=== PATIENT | female | born 1950 | race Caucasian/White ===

== ENCOUNTER 2017-03-16 15:18 | Inpatient (IN) | payer OTHER, MEDICARE ==
--- NOTE | 2017-03-16 15:25 | EDPHY ---
H & P Time Seen by Provider: 03/16/17 15:22 HPI/ROS: CHIEF COMPLAINT: Fever since Friday HISTORY OF PRESENT ILLNESS: Patient discharged 09/19/2016 with diagnosis of right-sided pleural effusion and probable metastatic breast cancer. Currently on oral chemotherapy through [facility], currently on oral chemotherapy Ibrance, a 3 week course which would end this . Presents with fever since Friday. Temperature up to 100.6. Symptoms mild to moderate. Associated with increasing cough and some mild shortness of breath. She has a indwelling right-sided thoracentesis catheter which gets drained every 3 days and was last drained on Friday without any change in appearance. REVIEW OF SYSTEMS: Eye: no change in vision ENT: no sore throat Cardiac: Is some increasing right-sided axillary chest pain Pulmonary: HPI Abdomen: no vomiting, diarrhea, abdominal pain Musculoskeletal: no back pain Skin: no rash Neuro: no headache Constitutional: HPI : no urinary symptoms A comprehensive 10 point review of systems is otherwise negative aside from elements mentioned in the history of present illness. PAST MEDICAL HISTORY: Stage IV breast cancer being treated at [facility]. Social history: Here with spouse General Appearance: Alert and conversant, cooperative. Eyes: No scleral icterus. ENT, Mouth: Normal mucous membranes. Respiratory: Normal respiratory effort, breath sounds slightly decreased at the left base, lungs are clear to auscultation. Cardiovascular: Regular rate and rhythm. Gastrointestinal: Abdomen is soft and non tender. Neurological: Alert and oriented x3. Normally conversant. Face symmetric, normal movement and sensation in all extremities. Skin: Warm and dry, no rashes. Dressing over the right-sided thoracentesis strain, surrounding skin looks clean dry and intact. Musculoskeletal: No peripheral edema and no joint swelling. Psychiatric: Not agitated. Emergency Department course/MDM: 1642: Results discussed, will attempt to contact her oncologist Dr. Darryl Draper at [facility]. The name of her chemotherapy is Ibrance, 100mg daily. 1710: Discussed with Dr. Luque for [facility] at [facility]. Does not have SIRS criteria. Tachycardic but normal respiratory rate and normal temperature, white blood cell count normal. IV normal saline, Levaquin 750, admission to hospital. Plan to complete fluid drain right side of her chest and monitor for fever. Pretest probability for pulmonary embolism low, negative D-dimer. Smoking Status: Never smoked Constitutional: Initial Vital Signs Temperature (C) 37.1 C 03/16/17 15:25 Heart Rate 102 H 03/16/17 15:25 Respiratory Rate 16 03/16/17 15:25 Blood Pressure 168/97 H 03/16/17 15:25 O2 Sat (%) 92 03/16/17 15:25 O2 Delivery Mode Room Air Allergies/Adverse Reactions: codeine [Codeine] Allergy (Verified 09/18/16 09:53) Home Medications: Medication Instructions Recorded Acetaminophen [Tylenol 325mg (*)] 650 mg PO Q6 PRN 03/16/17 Herbals/Supplements -Info Only 1 ea PO DAILY 03/16/17 Letrozole [Femara 2.5 mg (*)] 2.5 mg PO DAILY@30 03/16/17 Palbociclib [Ibrance] 100 mg PO DAILY@10 03/16/17 Thyroid [[place] Thyroid 60 MG (*)] 60 mg PO DAILY 03/16/17 Medical Decision Making - Diagnostics Imaging Results: Imaging Impressions Chest X-Ray 03/16/17 15:32 Impression: 1. Small right apical pneumothorax. 2. Small right pleural effusion. 3. Right middle lobe pneumonitis. Findings and recommendations discussed with emergency department physician, Mario Talley MD at 1616 hours on March 16, 2017. Final report concurs with initial preliminary interpretation. Chest x-ray reviewed with radiologist shows right-sided pleural effusion with drain and small apical pneumothorax. Isuani at 1620. Differential Diagnosis: As differential for fever and chemotherapy considered including but not limited to viral syndrome, pneumonia, UTI, sepsis. Consult/Admit Bed Type: [place] [address] - Data Points Laboratory Results: Laboratory Results 03/16/17 15:36 03/16/17 15:36 03/16/17 03/16/17 03/16/17 15:50 15:36 15:36 WBC RBC Hgb Hct MCV MCH MCHC RDW Plt Count MPV Neut % (Auto) Lymph % (Auto) [place] % (Auto) Eos % (Auto) Baso % (Auto) Nucleat RBC Rel Count Absolute Neuts (auto) Absolute Lymphs (auto) Absolute Monos (auto) Absolute Eos (auto) Absolute Basos (auto) Absolute Nucleated RBC Immature Gran % Immature Gran # PT 15.4 SEC H SEC (12.0-15.0) INR 1.22 H (0.83-1.16) APTT 31.3 SEC SEC (23.0-38.0) D-Dimer < 0.27 ug/mLFEU ug/mLFEU (0.00-0.50) VBG Lactic Acid Sodium 140 mEq/L mEq/L (134-144) Potassium 3.8 mEq/L mEq/L (3.5-5.2) Chloride 104 mEq/L mEq/L (97-110) Carbon Dioxide 25 mEq/l mEq/l (22-31) Anion Gap 11 mEq/L mEq/L (8-16) BUN 12 mg/dL mg/dL (7-23) Creatinine 0.7 mg/dL mg/dL (0.6-1.0) Estimated GFR > 60 Glucose 121 mg/dL H mg/dL (70-100) Calcium 9.0 mg/dL mg/dL (8.5-10.4) Total Bilirubin 0.5 mg/dL mg/dL (0.1-1.4) Urine Color COLORLESS Urine Appearance CLEAR Urine pH 6.0 (5.0-7.5) Ur Specific [place] 1.002 (1.002-1.030) Urine Protein NEGATIVE (NEGATIVE) Urine Ketones NEGATIVE (NEGATIVE) Urine Blood NEGATIVE (NEGATIVE) Urine Nitrate NEGATIVE (NEGATIVE) Urine Bilirubin NEGATIVE (NEGATIVE) Urine Urobilinogen NEGATIVE EU EU (0.2-1.0) Ur Leukocyte Esterase NEGATIVE (NEGATIVE) Urine Glucose NEGATIVE (NEGATIVE) 03/16/17 03/16/17 15:36 15:36 WBC 3.86 10^3/uL 10^3/uL (3.80-9.50) RBC 3.22 10^6/uL L 10^6/uL (4.18-5.33) Hgb 11.4 g/dL L g/dL (12.6-16.3) Hct 32.9 % L % (38.0-47.0) MCV 102.2 fL H fL (81.5-99.8) MCH 35.4 pg H pg (27.9-34.1) MCHC 34.7 g/dL g/dL (32.4-36.7) RDW 14.2 % % (11.5-15.2) Plt Count 188 10^3/uL 10^3/uL (150-400) MPV 10.3 fL fL (8.7-11.7) Neut % (Auto) 73.1 % % (39.3-74.2) Lymph % (Auto) 16.6 % % (15.0-45.0) [place] % (Auto) 8.8 % % (4.5-13.0) Eos % (Auto) 0.5 % L % (0.6-7.6) Baso % (Auto) 0.5 % % (0.3-1.7) Nucleat RBC Rel Count 0.0 % % (0.0-0.2) Absolute Neuts (auto) 2.82 10^3/uL 10^3/uL (1.70-6.50) Absolute Lymphs (auto) 0.64 10^3/uL L 10^3/uL (1.00-3.00) Absolute Monos (auto) 0.34 10^3/uL 10^3/uL (0.30-0.80) Absolute Eos (auto) 0.02 10^3/uL L 10^3/uL (0.03-0.40) Absolute Basos (auto) 0.02 10^3/uL 10^3/uL (0.02-0.10) Absolute Nucleated RBC 0.00 10^3/uL 10^3/uL (0-0.01) Immature Gran % 0.5 % % (0.0-1.1) Immature Gran # 0.02 10^3/uL 10^3/uL (0.00-0.10) PT INR APTT D-Dimer VBG Lactic Acid 0.6 mmol/L L mmol/L (0.7-2.1) Sodium Potassium Chloride Carbon Dioxide Anion Gap BUN Creatinine Estimated GFR Glucose Calcium Total Bilirubin Urine Color Urine Appearance Urine pH Ur Specific [place] Urine Protein Urine Ketones Urine Blood Urine Nitrate Urine Bilirubin Urine Urobilinogen Ur Leukocyte Esterase Urine Glucose Medications Given: Discontinued Medications Sodium Chloride (Ns) 1,000 mls @ 0 mls/hr IV ONCE ONE PRN Reason: Wide Open Stop: 03/16/17 17:25 Last Admin: 03/16/17 17:35 Dose: 1,000 mls Departure - Departure Disposition: [facility] Inpatient Acute Clinical Impression: Pleural effusion, breast cancer Condition: Good
[2017-03-16 15:46] LABS: % IMMATURE GRANULYOCYTES 0.5 % (0.0-1.1); ABSOLUTE IMMATURE GRANULOCYTES 0.02 10^3/uL (0.00-0.10); ADD DIFF? NO; ADD MORPH? NO; ADD SCAN? YES; ATYPICAL LYMPHOCYTE FLAG 0 (0-99); FRAGMENT RBC FLAG 0 (0-99); PLATELET COUNT 188 10^3/uL (150-400); RED CELL DISTRIBUTION WIDTH 14.2 % (11.5-15.2)
[2017-03-16 15:52] LABS: HEMATOCRIT 32.9 % (38.0-47.0); HEMOGLOBIN 11.4 g/dL (12.6-16.3); LEFT SHIFT FLG 10 (0-99); LIPEMIA HEMOLYSIS FLAG 90 (0-99); MEAN CELL HEMOGLOBIN 35.4 pg (27.9-34.1); MEAN CELL HEMOGLOBIN CONCENTR. 34.7 g/dL (32.4-36.7); MEAN CELL VOLUME 102.2 fL (81.5-99.8); MEAN PLATELET VOLUME 10.3 fL (8.7-11.7); PLATELET CLUMPS FLAG 10 (0-99); RED BLOOD CELL COUNT 3.22 10^6/uL (4.18-5.33)
[2017-03-16 15:55] LABS: INR 1.22 (0.83-1.16); PROTIME(PATIENT) 15.4 SEC (12.0-15.0)
[2017-03-16 15:56] LABS: APTT 31.3 SEC (23.0-38.0)
[2017-03-16 15:58] LABS: ANION GAP 11 mEq/L (8-16); BILIRUBIN,TOTAL 0.5 mg/dL (0.1-1.4); CARBON DIOXIDE 25 mEq/l (22-31); CHLORIDE 104 mEq/L (97-110); CREATININE 0.7 mg/dL (0.6-1.0); GLOMERULAR FILTRATION RATE > 60; GLUCOSE 121 mg/dL (70-100); POTASSIUM 3.8 mEq/L (3.5-5.2); SODIUM 140 mEq/L (134-144)
[2017-03-16 16:19] LABS: COLOR COLORLESS; LEUKOCYTE ESTERASE,URINE NEGATIVE (NEGATIVE); NITRITE,URINE NEGATIVE (NEGATIVE)
[2017-03-16 16:29] LABS: SCAN NEGATIVE
[2017-03-16] MEDS ORDERED: NS 1,000 ML IV ONE (17:24)
[2017-03-16] MEDS ORDERED: ONDANSETRON DISINTEGRATING 4 MG TAB PO PRN (18:20)
[2017-03-16] MEDS ORDERED: ONDANSETRON 4 MG/2 ML VIAL IVP PRN (18:20)
[2017-03-16] MEDS ORDERED: ACETAMINOPHEN 325 MG TAB PO PRN (18:26)
[2017-03-16] MEDS: ERTAPENEM 1 GM in NS 100 ML IV SCH (18:46)
[2017-03-16 19:33] LABS: LD, PLEURAL FLUID 2128 IU/L
--- NOTE | 2017-03-16 19:36 | GHP ---
[f rep st] HISTORY AND PHYSICAL DATE OF ADMISSION: 03/16/2017 CHIEF COMPLAINT: Fever. HISTORY OF PRESENT ILLNESS: This is a 66-year-old female with a history of metastatic breast cancer . She was diagnosed in September of last year with a metastatic pleural effusion. Since then, she h as been treated at [facility] and actually spent from November until just 2 days ago in [place]. She gets an oral chemotherapy agent, along with a hormone blocking agent. She has had some problems wit h leukopenia and the doses have been reduced lately. Over the last 2 days, she has had fevers in th e low 100 range. She has also had a productive cough and some chest pain, especially some tender ly mph nodes in her axilla. She has had no nausea, vomiting. She does have a PleurX catheter which sh e drains every 3 days. She gets about 200 cc every 3 days. There has been no change in the color o r consistency of the fluid. REVIEW OF SYSTEMS: A 10-point review of systems was obtained and, other than as stated above, was n egative. PAST MEDICAL HISTORY: 1. Metastatic breast cancer as above. 2. Hypothyroidism. MEDICATIONS: Reviewed. SOCIAL HISTORY: No smoking or alcohol. She is , lives with her . FAMILY HISTORY: No family history of breast cancer. PHYSICAL EXAM: VITAL SIGNS: Afebrile. Blood pressure is 150/97, heart rate 94, oxygen saturation 94% on room air. GENERAL: The patient is well developed, in no apparent distress. HEENT: Nonicte andreina sclerae. Extraocular movements intact. Moist mucous membranes. No thrush. NECK: Supple. No thyromegaly. LUNGS: Good effort. Some decreased breath sounds in the right base about [address] PleurX catheter is in place. Some mild tender lymphadenopathy in the axilla. CARDIOVASCU LAR: Regular rate and rhythm. No murmurs, rubs, gallops. ABDOMEN: Positive bowel sounds. Soft, nontender, nondistended. No hepatosplenomegaly. EXTREMITIES: No clubbing, cyanosis, or edema. SK IN: Without rash. Dry, intact. NEURO: Alert and oriented x3. Moving all 4 extremities equally. PSYCH: Normal affect. LABS: White count is 3, hemoglobin 11, platelets are 188. Chemistries normal. Chest x-ray, personally reviewed and interpreted, shows a small right pleural effusion and right mid dle lobe pneumonitis, possible right upper lobe pneumonitis, and a small apical pneumothorax. ASSESSMENT: This is a 66-year-old female with a history of metastatic breast cancer with chronic ri ght pleural effusion presenting with fever and cough. PLAN: 1. Fever and cough. This could be a brewing pneumonia. Do want to rule out infected pleural fluid . We have drained the fluid and that has been sent off for cytology. We will start antibiotics. W ill do with Invanz as well as azithromycin. Also get a respiratory viral panel. This could be perh aps influenza. 2. Metastatic breast cancer. Would probably get Oncology to see the patient tomorrow. ADMISSION: The patient will be admitted under full admission status. Case was discussed with the E R physician. Old records were reviewed and summarized in the HPI. /[id number]/MODL
[2017-03-16] MEDS: AZITHROMYCIN 250 MG TAB PO SCH (20:00)
[2017-03-16] MEDS: ACETAMINOPHEN 325 MG TAB PO PRN (20:01)
[2017-03-17] MEDS: ACETAMINOPHEN 325 MG TAB PO PRN (04:07)
[2017-03-17 04:28] LABS: % IMMATURE GRANULYOCYTES 0.4 % (0.0-1.1); ABSOLUTE IMMATURE GRANULOCYTES 0.01 10^3/uL (0.00-0.10); ADD DIFF? NO; ADD MORPH? NO; ADD SCAN? NO; ATYPICAL LYMPHOCYTE FLAG 0 (0-99); FRAGMENT RBC FLAG 0 (0-99); HEMATOCRIT 31.9 % (38.0-47.0); HEMOGLOBIN 10.7 g/dL (12.6-16.3); LEFT SHIFT FLG 20 (0-99); LIPEMIA HEMOLYSIS FLAG 80 (0-99); MEAN CELL HEMOGLOBIN 34.3 pg (27.9-34.1); MEAN CELL HEMOGLOBIN CONCENTR. 33.5 g/dL (32.4-36.7); MEAN CELL VOLUME 102.2 fL (81.5-99.8); MEAN PLATELET VOLUME 10.5 fL (8.7-11.7); PLATELET CLUMPS FLAG 0 (0-99); PLATELET COUNT 170 10^3/uL (150-400); RED BLOOD CELL COUNT 3.12 10^6/uL (4.18-5.33); RED CELL DISTRIBUTION WIDTH 14.3 % (11.5-15.2)
[2017-03-17 05:03] LABS: ALANINE AMINOTRANSFERASE 27 IU/L (9-52); ALBUMIN 3.4 g/dL (3.5-5.0); ALKALINE PHOSPHATASE 40 IU/L (38-126); ANION GAP 6 mEq/L (8-16); ASPARTATE AMINOTRANSFERASE 18 IU/L (14-46); BILIRUBIN,TOTAL 0.4 mg/dL (0.1-1.4); CALCIUM 8.6 mg/dL (8.5-10.4); CARBON DIOXIDE 23 mEq/l (22-31); CHLORIDE 111 mEq/L (97-110); CREATININE 0.6 mg/dL (0.6-1.0); GLOMERULAR FILTRATION RATE > 60; GLUCOSE 85 mg/dL (70-100); POTASSIUM 3.9 mEq/L (3.5-5.2); SODIUM 140 mEq/L (134-144); TOTAL PROTEIN 6.2 g/dL (6.3-8.2)
[2017-03-17] MEDS ORDERED: ENOXAPARIN 40 MG/0.4 ML SYR SC SCH (09:00)
[2017-03-17] MEDS: ERTAPENEM 1 GM in NS 100 ML IV SCH (09:53)
[2017-03-17] MEDS: LETROZOLE 2.5 MG TAB PO SCH ×2 (09:53→10:14)
[2017-03-17] MEDS: AZITHROMYCIN 250 MG TAB PO SCH (09:53)
[2017-03-17] MEDS: THYROID 60 MG TAB PO SCH ×2 (09:53→10:15)
[2017-03-17] MEDS ORDERED: Palbociclib [Ibrance] 100 MG PO SCH (10:00)
[2017-03-17 12:17] VITALS: BP 139/79; PULSE 77; RESP 16; TEMP 98.2; O2SAT 95
--- NOTE | 2017-03-17 12:37 | GDS ---
[f rep st] DISCHARGE SUMMARY DISCHARGE DIAGNOSIS: Resolved fever in the setting of metastatic breast cancer with chronic metastatic pleural effusion. HOSPITAL COURSE AND STAY BY PROBLEM: Fever: The patient presented with a fever. Blood cultures were drawn that have not grown any organisms. She was started on IV ertapenem and azithromycin, and on hospital day #1, tells me that she feels much better. She is no longer having a fever. Chest x-ray done on is not conclusive for a pneumonia. A pleural fluid culture has been sent and is currently pending. Prior to discharge, I discussed treatment options with the patient, which included discharged home with outpatient followup of pending culture results with a prescription for levofloxacin versus continued hospitalization. Given that she feels much better today, she tells me that she would like to leave the hospital and understands that she is leaving without a definitive diagnosis in place. To note, on day of discharge, her white blood cell count did fall from 3.86 to 2.72 with absolute neutrophil count of greater than 1500. PHYSICAL EXAM: VITAL SIGNS: On day of discharge, blood pressure 124/83, pulse 78, respiratory rate 18, O2 saturation 93% on room air. Temperature afebrile. GENERAL: No acute distress. HEART: S1, S2. LUNGS: Clear. No wheezes, rales , or rhonchi. Slightly diminished breath sounds in the right base. ABDOMEN: Soft. EXTREMITIES: No edema. PENDING LABORATORY STUDIES: Pleural fluid culture has been ordered and is currently pending. Blood cultures sent on 03/16/2017 are pending. DISCHARGE MEDICATIONS: Please refer to discharge medication reconciliation in [facility] for details. Below is a preliminary list. New medications on hospital discharge: Levofloxacin 750 mg daily for 5 days, which will complete a total of 7 days of antibiotics, and she received IV ertapenem both yesterday and today prior to discharge. DISCHARGE INSTRUCTIONS: The patient will be discharged today. She was instructed to follow up with her primary care provider in the next week for routine hospital followup. The patient understands to seek medical attention if her fever returns or if her overall health is declining. /[id number]/MODL MTDD
[2017-03-17 13:25] LABS: COLOR PALE YELLOW; LEUKOCYTE ESTERASE,URINE NEGATIVE (NEGATIVE); NITRITE,URINE NEGATIVE (NEGATIVE)
== END 2017-03-17 13:23 | disposition home or self-care (01) | DRG 598 ==
LOC: F1N 17:59
PROVIDERS: ADMIT Internal Medicine; ATTEND Family Medicine
DX: C50.919 Malignant neoplasm of unspecified site of unspecified female breast (principal); J91.0 Malignant pleural effusion; J95.811 Postprocedural pneumothorax
CPT/HCPCS: 96374; J1335; J1650; J1956